=== PATIENT | female | born 1995 | race Caucasian/White ===

== ENCOUNTER 2024-02-20 19:19 | Emergency (ER) | payer OTHER ==
[~2024-02-20] VITALS: Ht 154.9 cm; Wt 42.6 kg
[2024-02-20 20:13] VITALS: BP_SYST 109; PULSE 92; RESP 18; TEMP 99.3; O2SAT 100
[2024-02-20] MEDS ORDERED: IBUP-1969 PO (20:58)
[2024-02-20] MEDS ORDERED: BACI1OIN7 TP (20:58)
== END 2024-02-20 20:19 | disposition home or self-care (01) ==
LOC: SED 19:19
DX: S43.401A Unspecified sprain of right shoulder joint, initial encounter (principal); S50.811A Abrasion of right forearm, initial encounter; S99.911A Unspecified injury of right ankle, initial encounter; V29.99XA Rider (driver) (passenger) of other motorcycle injured in unspecified traffic accident, initial encounter; Y93.89 Activity, other specified; Y92.89 Other specified places as the place of occurrence of the external cause; Y99.8 Other external cause status
CPT/HCPCS: 73030; 81025; 99284